=== PATIENT | female | born 1980 | race Caucasian/White ===

== ENCOUNTER 2020-05-30 06:08 | Inpatient (IN) | payer OTHER ==
[2020-05-30] MEDS ORDERED: METOCLOPRAMIDE 10 MG/2 ML INJ IV NR (06:34)
[2020-05-30] MEDS ORDERED: BICITRA ORAL LIQD 30ML PO NR (06:34)
[2020-05-30] MEDS ORDERED: FAMOTIDINE 20 MG/2 ML INJ IV NR (06:34)
[2020-05-30 06:58] LABS: Basophils # (Auto) 0.1 K/mm3 (0.0-0.1); Eosinophils # (Auto) 0.2 K/mm3 (0.0-0.4); Eosinophils % (Auto) 3.3 % (0.0-4.3); Hematocrit 28.7 % (30.3-42.9); Hemoglobin 9.4 gm/dl (10.1-14.3); Lymphocytes # (Auto) 1.3 K/mm3 (1.2-5.4); Lymphocytes % (Auto) 23.4 % (13.4-35.0); Mean Corpuscular HGB Conc 33 % (30-34); Mean Corpuscular Volume 80 fl (79-97); Monocytes # (Auto) 0.4 K/mm3 (0.0-0.8); Monocytes % (Auto) 6.9 % (0.0-7.3); Platelet Count 170 K/mm3 (140-440); Red Cell Distribution Width 15.3 % (13.2-15.2)
[2020-05-30] MEDS ORDERED: ceFAZolin/Water 2 GM/20 ML 2 GM/20 ML SYRINGE IV NR (07:00)
[2020-05-30] MEDS ORDERED: OXYTOCIN DRIP 30 UNITS/500 ML BAG IV SCH ×2 (07:00→10:00)
[2020-05-30] MEDS ORDERED: LACTATED RINGERS 1,000 ML IV SCH ×2 (07:00→10:00)
--- NOTE | 2020-05-30 07:26 | Anesthesia Consultation ---
Anesthesia Consult and Med Hx Date of service: 05/30/20 - Airway Anesthetic Teeth Evaluation: Good ROM Head & Neck: Adequate Mental/Hyoid Distance: Adequate Mallampati Class: Class II Intubation Access Assessment: Probably Good - Pulmonary Exam CTA: Yes - Cardiac Exam Cardiac Exam: RRR - Pre-Operative Health Status ASA Pre-Surgery Classification: ASA2 Proposed Anesthetic Plan: Spinal - Other Systems Hx Obesity: Yes
--- NOTE | 2020-05-30 07:26 | Anesthesia Day of Surgery ---
Anesthesia Day of Surgery - Day of Surgery Patient Examined: Yes Patient H&P Reviewed: Yes Patient is NPO: Yes
[2020-05-30] MEDS ORDERED: SODIUM CHLORIDE 0.9% 500 ML 500 ML IV NR (07:40)
--- NOTE | 2020-05-30 07:42 | History and Physical Report ---
History of Present Illness Date of examination: 05/30/20 Date of admission: 05/30/20 06:08 Chief complaint: 40yo GP at weeks presents for primary section and bilateral tubal ligation Breech presentation Multiparity desires surgical sterilization History of present illness: 40yo at weeks, breech presentation Multiparity, desires surgical sterilization PNC at [facility] Prental labs O/pos H/H: 02/18/30.7 HIV NR Rubella immune GCT 140,GTT WNL RPR NR HbAG NR Pap NILM GC/Chlamydia: negative AFP positive for DOWNS GBS negative PNR in paper chart, unable to read Past History Past Surgical History: no surgical history Family/Genetic History: none Social history: no significant social history - Obstetrical History Expected Date of Delivery: 05/31/20 Actual Gestation: 39 Week(s) 6 Day(s) : 5 Para: 4 Medications and Allergies Allergies Allergy/AdvReac Type Severity Reaction Status Date / Time No Known Allergies Allergy Unverified 05/30/20 06:34 Home Medications Medication Instructions Recorded Confirmed Last Taken Type No Known Home Medications [No 05/30/20 05/30/20 Unknown History Reported Home Medications] Active Meds: Active Medications Citric Acid/Sodium Citrate (Bicitra) 30 ml PO ONCE NR Stop: 05/30/20 13:00 Famotidine (Pepcid) 20 mg IV ONCE NR Stop: 05/30/20 13:00 Lactated Ringer's (Lactated Ringers) 1,000 mls @ 2,250 mls/hr IV PREOP SAGAR Stop: 05/31/20 07:27 Last Admin: 05/30/20 06:45 Dose: 2,250 mls/hr Documented by: Oxytocin/Sodium Chloride (Pitocin/Ns 30 Unit/500ml) 30 units in 500 mls @ 0 mls/hr IV TITR SAGAR; Protocol Cefazolin Sodium (Ancef/Sterile Water 2 Gm/20 Ml) 2 gm in 20 mls @ 80 mls/hr IV PREOP NR; Protocol Stop: 05/30/20 23:00 Metoclopramide HCl (Reglan) 10 mg IV ONCE NR Stop: 05/30/20 13:00 Review of Systems All systems: negative (ROS negtive for OB compliants) - Vital Signs Vital signs: Vital Signs Pulse BP 75 136/84 05/30/20 06:56 05/30/20 06:56 Temp Pulse Resp BP Pulse Ox 98.3 F 79 18 136/84 99 05/30/20 07:03 05/30/20 07:37 05/30/20 07:03 05/30/20 07:03 05/30/20 07:37 - Physical Exam Breasts: Positive: deferred Cardiovascular: Regular rate Lungs: Positive: Clear to auscultation Abdomen: Positive: normal appearance, soft, normal bowel sounds Genitourinary (Female): Positive: normal external genitalia, normal perenium Anus/Rectum: Positive: normal perianal skin Extremities: Positive: normal Deep Tendon Reflex Grade: Normal +2 - Obstetrical FHR: category 1 Results Result Diagrams: 05/30/20 06:45 Abnormal lab results 05/30/20 Range/Units 06:45 RBC 3.60 L (3.65-5.03) M/mm3 Hgb 9.4 L (10.1-14.3) gm/dl Hct 28.7 L (30.3-42.9) % MCH 26 L (28-32) pg RDW 15.3 H (13.2-15.2) % All other labs normal. 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 Patient taken to the OR where she received excellent spinal anesthesia without complications. EUA revealed vertex presentation, US at bedside confirms position. Plan for admission to L&D, AROM and oxytocin. cervix 3-4cm. Plan for BTL as outpatient. GBS prophylasis as indicated Patient acknowledges understanding. Olivia Meeks MD
[2020-05-30] MEDS ORDERED: BUPIVACAINE/PF (0.5%) 5 MG/1 ML 30 ML VIAL INFILTRATI ONE (07:57)
[2020-05-30] MEDS ORDERED: dexAMETHasone 20 MG/5 ML VIAL ONE (07:57)
[2020-05-30] MEDS ORDERED: ONDANSETRON 4 MG/2 ML INJ ONE (07:57)
[2020-05-30] MEDS ORDERED: KETOROLAC 30 MG/1 ML INJ ONE (07:57)
[2020-05-30] MEDS ORDERED: BUTORPHANOL 2 MG/1 ML INJ IV PRN (09:01)
[2020-05-30] MEDS ORDERED: LIDOCAINE (2%) 20 MG/1 ML VIAL 20 ML MDV INFILTRATI NR (09:01)
[2020-05-30] MEDS ORDERED: TERBUTALINE 1 MG/1 ML INJ SUB-Q PRN (09:01)
--- NOTE | 2020-05-30 09:18 | Progress Note ---
Subjective - Subjective Date of service: 05/30/20 Interval history: Vertex AROM clear fluid cervix 3-4cm/25%/-3 well begin reassuring paln for oxytocin per protocol CFM expect Olivia Meeks MD Objective - Vital Signs Vital Signs: Vital Signs - 12hr 05/30/20 05/30/20 05/30/20 06:56 06:57 07:02 Temperature Pulse Rate 75 76 76 Respiratory Rate Blood Pressure 136/84 Blood Pressure [Right] O2 Sat by Pulse 99 99 Oximetry 05/30/20 05/30/20 05/30/20 07:03 07:07 07:12 Temperature 98.3 F Pulse Rate 75 78 82 Respiratory 18 Rate Blood Pressure Blood Pressure 136/84 [Right] O2 Sat by Pulse 99 99 99 Oximetry 05/30/20 05/30/20 05/30/20 07:17 07:22 07:27 Temperature Pulse Rate 82 81 87 Respiratory Rate Blood Pressure Blood Pressure [Right] O2 Sat by Pulse 99 99 98 Oximetry 05/30/20 05/30/20 05/30/20 07:32 07:37 07:42 Temperature Pulse Rate 78 79 84 Respiratory Rate Blood Pressure Blood Pressure [Right] O2 Sat by Pulse 98 99 98 Oximetry 05/30/20 05/30/20 05/30/20 07:47 08:41 08:42 Temperature Pulse Rate 97 H 71 72 Respiratory Rate Blood Pressure 97/53 Blood Pressure [Right] O2 Sat by Pulse 99 98 Oximetry 05/30/20 05/30/20 05/30/20 08:46 08:51 08:56 Temperature Pulse Rate 75 73 74 Respiratory Rate Blood Pressure Blood Pressure [Right] O2 Sat by Pulse 95 99 99 Oximetry 05/30/20 05/30/20 05/30/20 08:57 09:01 09:06 Temperature Pulse Rate 70 73 73 Respiratory Rate Blood Pressure 94/50 Blood Pressure [Right] O2 Sat by Pulse 96 98 Oximetry 05/30/20 05/30/20 09:11 09:12 Temperature Pulse Rate 73 70 Respiratory Rate Blood Pressure 90/54 Blood Pressure [Right] O2 Sat by Pulse 99 Oximetry - Labs Labs: Abnormal Labs 05/30/20 05/30/20 06:45 06:45 RBC 3.60 L Hgb 9.4 L Hct 28.7 L MCH 26 L RDW 15.3 H Crossmatch See Detail Laboratory Results - last 24 hr 05/30/20 05/30/20 06:45 06:45 WBC 5.7 RBC 3.60 L Hgb 9.4 L Hct 28.7 L MCV 80 MCH 26 L MCHC 33 RDW 15.3 H Plt Count 170 Lymph % (Auto) 23.4 [place] % (Auto) 6.9 Eos % (Auto) 3.3 Baso % (Auto) 1.0 Lymph # (Auto) 1.3 [place] # (Auto) 0.4 Eos # (Auto) 0.2 Baso # (Auto) 0.1 Seg Neutrophils % 65.4 Seg Neutrophils # 3.7 Blood Type O POSITIVE Antibody Screen Negative Crossmatch See Detail
[2020-05-30] MEDS ORDERED: ePHEDrine SULFATE 50 MG/1 ML INJ IV PRN (09:30)
[2020-05-30] MEDS ORDERED: fentaNYL 100 MCG/2 ML INJ IV PRN (09:30)
[2020-05-30] MEDS ORDERED: ONDANSETRON 4 MG/2 ML INJ IV PRN (10:00)
[2020-05-30] MEDS: OXYTOCIN DRIP 30 UNITS/500 ML BAG IV SCH ×2 (11:10→11:46)
--- NOTE | 2020-05-30 18:04 | Event Note ---
Date: 05/30/20 Assumed care of patient at 5:30 PM. Patient is receiving oxytocin for augmentation of labor at term. Nurse states patient had AROM at 08:50 this mo rning with clear fluid. SVE 4.5/30/-4/cephalic. On exam under bright lights, small perineal lesion noted on right side of perineum; resembles abrasion or fissure. Questioned patient re: this lesion. Patient states she was not aware of any lesion. She denies any pain, itching, stinging or burning. Patient denies any history of herpes. Discussed with patient that we will perform a herpes culture on the lesion and also do herpes serology today but that we will not have the results of these tests for several days. Cultured lesion and sent swab to lab. Called and informed Dr. Squires re: lesion noted on perineum during exam and that cultures and serology were ordered/performed. Informed re: cervical exam and that membranes were ruptured at 08:[address] Squires states she will come and evaluate this lesion. Patient informed that MD notified.
[2020-05-30] MEDS ORDERED: valACYclovir 500 MG TAB PO SCH (19:13)
--- NOTE | 2020-05-30 21:19 | Event Note ---
Date: 05/30/20 Dr. Squires came and saw patient and evaluated lesion and states it is OK to proceed with labor and allow patient to have a vaginal .
[2020-05-30] MEDS ORDERED: MINERAL OIL 30 ML ORAL LIQD PO PRN (22:00)
--- NOTE | 2020-05-31 02:02 | Event Note ---
Date: 05/31/20 SVE /-3.
--- NOTE | 2020-05-31 06:51 | Event Note ---
Date: 05/31/20 SVE at 06:45: 6/90/-3. Only change in cervix is slightly more effacement since last exam [address]. [address] Squires at 06:48 re: minimal cervical change in spite of Pitocin and prolonged ROM and high station. Dr. Squires orders to get patient ready to have a section. Discussed this plan with patient. Informed patient's nurse and OR team. orders put in. Pitocin turned off.
[2020-05-31] MEDS ORDERED: LACTATED RINGERS 1,000 ML IV SCH (07:00)
[2020-05-31] MEDS ORDERED: BICITRA ORAL LIQD 30ML PO NR (07:00)
[2020-05-31] MEDS ORDERED: METOCLOPRAMIDE 10 MG/2 ML INJ IV NR (07:00)
[2020-05-31] MEDS ORDERED: FAMOTIDINE 20 MG/2 ML INJ IV NR (07:00)
[2020-05-31] MEDS ORDERED: ceFAZolin/Water 2 GM/20 ML 2 GM/20 ML SYRINGE IV NR (07:00)
[2020-05-31] MEDS ORDERED: miSOPROStol 200 MCG TAB ONE (07:58)
[2020-05-31] MEDS ORDERED: METHYLERGONOVINE MALEATE 0.2 MG/ML VIAL IM ONE (07:58)
[2020-05-31] MEDS ORDERED: CARBOPROST TROMETHAMINE 250 MCG/1 ML INJ IM ONE (07:58)
[2020-05-31] MEDS ORDERED: ceFAZolin/STERILE WATER 2 GM/20 ML SYRINGE IV ONE (08:05)
[2020-05-31] MEDS ORDERED: SODIUM CHLORIDE 0.9% IRR 1,500 ML BOTTLE IR ONE (08:18)
[2020-05-31] MEDS ORDERED: WATER FOR IRRIG STERILE 1,500 ML BOTTLE IR ONE (08:18)
[2020-05-31] MEDS ORDERED: BUPIVACAINE/PF (0.5%) 5 MG/1 ML 30 ML VIAL INFILTRATI ONE (08:58)
[2020-05-31] MEDS ORDERED: ONDANSETRON 4 MG/2 ML INJ ONE (08:58)
[2020-05-31] MEDS ORDERED: PHENYLEPHRINE/NS 1,000 MCG/10 ML SYRINGE (OR USE) IV ONE (08:58)
[2020-05-31] MEDS ORDERED: SODIUM CHLORIDE 0.9% 100 ML ONE (09:22)
[2020-05-31] MEDS ORDERED: KETOROLAC 30 MG/1 ML INJ ONE (09:22)
--- NOTE | 2020-05-31 09:46 | Procedure Note ---
OB Delivery Note - Delivery Date of Delivery: 05/31/20 Surgeon: CHARITY SAWANT Estimated blood loss: 1000cc - Section Preop diagnosis: arrest of dilation, desires sterilization Postop diagnosis: same section procedure: section, primary low transverse, bilateral tubal ligation Disposition: PACU Complications: uterine atony Narrative: Please see operative report. - A at 1 minute: 9 at 5 minutes: 9 Infant Gender: Female (3901g (8lb 9oz) @ 0840 am)
--- NOTE | 2020-05-31 09:49 | Operative Report ---
Operative Report Operative Report: Date of procedure: May 31, 2020 Preoperative diagnosis: 1) IUP at 40w0d 2) Prolonged ROM 3) Arrest of Dilation 4) Obesity 5) Undesired Fertility 6) AMA Postoperative diagnosis: Same Procedure: 1) Primary low transverse section 2) Bilateral tubal ligation via modified [place] method Surgeon: Farrah Squires M.D. Anesthesia: Regional Findings: 1) Viable female , Apgars 9 and 9, weight 3901g, (8 lb 9 oz) in cephalic presentation 2) Normal appearing ovaries and tubes Estimated blood loss: 1000 mL Urine output: 100 mL, clear at the end of the procedure Drains: Marino to gravity Specimens: Tubal segments, placenta to pathology Complications: Counts correct x 3 Disposition: Stable to PACU Indication for procedure: Pt is a 40 year old at 40w0d initially presented on 05/30/20 for scheduled section due to malpresentation. The fetus was noted to be in cephalic presentation and an induction of labor was started. The patient progressed to 6 cm but arrested there for 4 hours. The decision was made to proceed with section. Operation in Detail: After the risks, benefits, alternatives and complications were explained to the patient she gave informed consent for the procedure. She was subsequently taken to the operating room where regional anesthesia was noted to be adequate. She was then placed in the dorsal supine position with leftward tilt and prepped and draped in a normal sterile fashion. heart tones were noted prior to incision. A timeout was performed. A Pfannenstiel skin incision was made with the knife and carried down to the layer of the fascia with the Bovie. The fascia was incised in the midline and the fascial incision was extended bilaterally with the Bovie. The fascial incision was then stretched. The rectus muscles were then in the midline and partially transected for adequate visualization. The peritoneum was then entered sharply between two Gisel clamps. The peritoneal incision was extended with good visualization of the bladder. The peritoneal incision was then stretched. An Karl retractor was placed. The bladder blade was placed. The vesicouterine peritoneum was grasped with smooth pick ups and incised with Metzenbaum scissos. A bladder flap was created and the bladder blade was re placed. A transverse incision was made with a knife in the lower uterine segment. The hysterotomy was stretched. The head was delivered without difficulty followed by delivery of the shoulders and body. was bulb suctioned at delivery. The cord was clamped and cut and the was handed to NICU staff in attendance. Cord blood was collected. The placenta was then delivered manually. The uterus was exteriorized and cleared of all clots and debris. The hysterotomy was then reapproximated with 0 Vicryl in a running locked fashion. A second suture was used in an imbricated fashion. Multiple figure of eights of 0 Vicryl were used to obtain hemostasis. The hysterotomy was inspected and hemostasis was noted. Attention was then turned to the tubal ligation. The right tube was identified, grasped with a hope and followed out to the fimbriae. The tube was suture ligated via a modified [place] merhod using 0 plain suture. The intervening tubal segment was sent to pathology. Oozing from the mesosalpinx was controlled with a transfixion stitch of 3-0 Vicryl. Hemostasis was noted. The left tube was then identified, followed out to the fimbriae and suture ligated via a modified [place] method using 0 plain suture. Hemostasis was noted. Surgicel was placed over the tubal ostia bilaterally. The gutters were irrigated and cleared of all clots and debris. The hysterotomy was again inspected and noted to be hemostatic. Surgicel was placed over the hysterotomy. The uterus was returned to the peritoneal cavity. The Karl retractor was removed. The peritoneum was reapproximated with 2-0 Vicryl in a running fashion incorporating the rectus muscles. Surgicel was placed over the rectus muscles. The fascia was reapproximated with 0-Vicryl in a running fashion. The skin was reapproximated with 4-0 Vicryl in a subcuticular fashion. The incision was then covered with a pressure dressing. The procedure was then ended. The patient tolerated the procedure well and was taken to the PACU in stable condition. All instrument, lap, and needle counts were correct 3.
--- NOTE | 2020-05-31 10:00 | Post Anesthesia Evaluation ---
- Post Anesthesia Evaluation Patient Participated: Yes Airway Patent: Yes Stable Respiratory Function: Yes Nausea/Vomiting: No Temp > 96.8F: Yes Pain Manageable: Yes Adequeate Hydration: Yes Anesthesia Complications: No Block Receding Appropriately: Yes
--- NOTE | 2020-05-31 10:00 | Progress Note ---
Regional Anesthesia Block - Regional Anesthesia Block Start Time: :50 Stop Time: :55 Performed By:: CAITLIN DUNN Procedure: U/S guided bilateral tap block performed for post-operative pain requested by Dr. Squires. H&P & labs reviewed. Procedure explained, questions answered, consent obtained. Patient in the supine position with ekg, blood pressure cuff and pulse ox on and working in PACU. Timeout performed immediately before start of procedure. Probe placed in the mid-axillary line and the external oblique, internal oblique, and transverse abdominus muscles identified. Skin was cleansed with 0.5% Chlorahexadine and allowed to dry. A 4" 20 G Trotter echogenic needle was advanced in plane until the tip was in the fascial plane between the internal oblique and the transverse abdominus. After negative aspiration 35 ml/side of [30 ml 0.5% Bupivacaine], [50 mcg dexmedetomidine], [10 mg dexamethasone], and [40 ml sterile saline] was injected in 5 ml increments with negative aspiration in between. Patient tolerated procedure well. Cholo CLARK
[2020-05-31] MEDS ORDERED: MORPHINE 4 MG/1 ML INJ IV PRN (11:46)
[2020-05-31] MEDS ORDERED: OXYTOCIN DRIP 30 UNITS/500 ML BAG IV SCH (11:46)
[2020-05-31] MEDS ORDERED: MORPHINE 2 MG/1 ML INJ IV PRN (11:46)
[2020-05-31] MEDS ORDERED: SIMETHICONE 80 MG CHEW TAB PO PRN (11:46)
[2020-05-31] MEDS ORDERED: WITCH HAZEL/ GLYCERIN PAD TP PRN (11:46)
[2020-05-31] MEDS ORDERED: LANOLIN/ZINC/DIMETHICONE (LANSINOH) 7 GM TP PRN (11:46)
[2020-05-31] MEDS ORDERED: MAGNESIUM HYDROXIDE (MOM) ORAL LIQD UDC PO PRN (11:46)
[2020-05-31] MEDS ORDERED: oxyCODONE /ACETAMINOPHEN 5-325MG TAB PO PRN (11:46)
[2020-05-31] MEDS ORDERED: NALOXONE 0.4 MG/1 ML INJ IV PRN (11:46)
[2020-05-31] MEDS: KETOROLAC 30 MG/1 ML INJ IV SCH ×2 (12:14→18:17)
[2020-05-31] MEDS: D5W/LACTATED RINGERS 1,000 ML IV SCH ×2 (12:15→18:48)
[2020-05-31] MEDS: ceFAZolin/NS 1 GM/50 ML 1 GM/50 ML BAG IV SCH (16:14)
[2020-06-01] MEDS: KETOROLAC 30 MG/1 ML INJ IV SCH (00:52)
[2020-06-01] MEDS: ceFAZolin/NS 1 GM/50 ML 1 GM/50 ML BAG IV SCH (00:53)
[2020-06-01 01:12] LABS: Hemoglobin 7.4 gm/dl (10.1-14.3)
[2020-06-01] MEDS ORDERED: DIPHtheria,PERTUSSIS(ACELL),TETANUS VACCINE/PF 0.5 ML VIAL IM ONE (06:01)
[2020-06-01] MEDS ORDERED: MEASLES, MUMPS & RUBELLA 12,500 UNIT/0.5 ML VACCINE SUB-Q ONE (10:01)
[2020-06-01] MEDS: IBUPROFEN 800 MG TAB PO PRN ×3 (11:27→23:46)
[2020-06-01] MEDS: FERROUS SULFATE 325 MG TAB PO SCH (11:28)
--- NOTE | 2020-06-01 20:04 | Progress Note ---
Assessment and Plan A: /postop day 1 S/P primary LTCS with BTL. Anemia. P: Encouraged ambulation. Continue iron supplementation. Subjective - Subjective Date of service: 06/01/20 Principal diagnosis: /postop day 1 S/P primary LTCS and BTL Patient reports: appetite normal, voiding normally, pain well controlled, flatus, ambulating normally, no dizzy ambulation, no nauseated [place]: doing well Objective - Vital Signs Latest vital signs: Vital Signs Temp Pulse Resp BP Pulse Ox 06/01/20 16:14 97.9 F 103 H 18 118/75 100 06/01/20 08:17 98.4 F 112 H 20 134/76 97 06/01/20 05:44 98.2 F 107 H 18 130/76 98 06/01/20 00:49 98.3 F 117 H 18 124/80 99 05/31/20 21:48 98.5 F 90 18 125/72 98 Intake and Output 06/01/20 06/01/20 06/01/20 07:59 15:59 23:59 Intake Total 240 960 840 Output Total 400 450 400 Balance -160 510 440 Intake: Oral 240 360 480 Intake, Free Water 600 360 Output: Urine 400 450 400 Indwelling Catheter 400 Void 450 400 Other: Total, Intake Amount 120 240 480 Total, Output Amount 400 450 400 # Voids Indwelling Catheter 1 Void 1 2 - Exam Cardiovascular: Present: Regular rate, No murmurs Lungs: Present: Clear to auscultation Abdomen: Present: normal appearance, soft, normal bowel sounds. Absent: distention, tenderness, guarding, rigidity Uterus: Present: normal, firm, fundal height below umbilicus. Absent: bogginess, tenderness Extremities: Present: normal. Absent: tenderness, edema Incision: Present: normal, dry, dressed - Labs Labs: Abnormal lab results 05/30/20 06/01/20 Range/Units 06:45 00:40 Hgb 7.4 L (10.1-14.3) gm/dl Hct 23.0 L (30.3-42.9) % Crossmatch See Detail
[2020-06-02] MEDS: IBUPROFEN 800 MG TAB PO PRN (05:50)
[2020-06-02] MEDS: FERROUS SULFATE 325 MG TAB PO SCH (10:01)
--- NOTE | 2020-06-02 12:01 | Progress Note ---
Assessment and Plan A: POD #2 Asymptomatic Anemia P: Follow Routine PostOp Orders Continue PO FeSO4 Infed 100mg IM x 1 dose D/C home today per patient request RTO in one Week Subjective - Subjective Date of service: 06/02/20 Principal diagnosis: /postop day 1 S/P primary LTCS and BTL Patient reports: appetite normal, voiding normally, pain well controlled, flatus, ambulating normally : doing well, bottle feeding (and ) Objective - Vital Signs Latest vital signs: Vital Signs Temp Pulse Resp BP Pulse Ox 06/02/20 08:12 97.7 F 84 18 121/67 99 06/01/20 23:44 98.3 F 104 H 18 119/65 100 06/01/20 16:14 97.9 F 103 H 18 118/75 100 Intake and Output 06/01/20 06/02/20 06/02/20 22:59 06:59 14:59 Intake Total 960 240 Output Total 800 Balance 160 240 Intake: Oral 600 240 Intake, Free Water 360 Output: Urine 800 Void 800 Other: Total, Intake Amount 120 240 Total, Output Amount 400 # Voids Void 1 1 1 - Exam Breasts: Present: normal Cardiovascular: Present: Regular rate Lungs: Present: Clear to auscultation, Normal air movement Abdomen: Present: normal appearance, soft, normal bowel sounds Uterus: Present: normal, firm, fundal height below umbilicus Extremities: Present: normal Incision: Present: normal, intact - Labs Labs: Abnormal lab results 05/30/20 Range/Units 06:45 Crossmatch See Detail
--- NOTE | 2020-06-02 12:03 | Discharge Summary ---
Providers - Providers Date of Admission: 05/30/20 06:08 Date of discharge: 06/02/20 Attending physician: MADISON CASE MD 05/31/20 11:46 Consult to Vp Patient [CONS] Routine Reason For Exam: Primary care physician: MADISON CASE MD Hospitalization Reason for admission: section Delivery: Procedure: primary low transverse Episiotomy: none Laceration: none Incision: normal, dry, intact Other procedures: none complications: none Discharge diagnosis: IUP at term delivered Condition at discharge: Good Disposition: DC-01 TO HOME OR SELFCARE Plan - Provider Discharge Summary Activity: routine, no sex for 6 weeks, no heavy lifting 4 weeks, no strenuous exercise Diet: routine Instructions: routine Additional instructions: [] Smoking cessation referral if applicable(refer to patient education folder for contact #) [] Refer to [facility] Booklet Call your doctor immediately for: * Fever > 100.5 * Heavy vaginal bleeding ( >1 pad per hour) * Severe persistent headache * Shortness of breath * Reddened, hot, painful area to leg or breast * Drainage or odor from incision. * Keep incision clean and dry at all times and follow doctor's instructions regarding bathing/showering - Follow up plan Follow up: MADISON CASE MD [Primary Care Provider] - 7 Days
[2020-06-02] MEDS ORDERED: IRON DEXTRAN COMPLEX 100 MG/2 ML INJ IM ONE (12:26)
[2020-06-02] MEDS ORDERED: DIPHtheria,PERTUSSIS(ACELL),TETANUS VACCINE/PF 0.5 ML VIAL IM ONE ×2 (14:36→15:30)
[2020-06-02 14:51] VITALS: BP 130/53
== END 2020-06-02 15:10 | disposition home or self-care (01) | DRG 785 ==
LOC: APU 06:08 → LD 11:05 → OB 05-31 12:06
PROVIDERS: ADMIT Obstetrics & Gynecology; ATTEND Obstetrics & Gynecology
PROC: 10907ZC Drainage of Amniotic Fluid, Therapeutic from Products of Conception, Via Natural or Artificial Opening (ICD-10-PCS; 2020-05-30)
PROC: 3E033VJ Introduction of Other Hormone into Peripheral Vein, Percutaneous Approach (ICD-10-PCS; 2020-05-30)
PROC: 10D00Z1 Extraction of Products of Conception, Low, Open Approach (ICD-10-PCS; principal; 2020-05-31)
PROC: 0UB70ZZ Excision of Bilateral Fallopian Tubes, Open Approach (ICD-10-PCS; 2020-05-31)
PROC: 3E0234Z Introduction of Serum, Toxoid and Vaccine into Muscle, Percutaneous Approach (ICD-10-PCS; 2020-06-02)
DX: O32.1XX0 Maternal care for breech presentation, not applicable or unspecified (principal); O99.214 Obesity complicating childbirth; Z37.0 Single live birth; E66.9 Obesity, unspecified; O62.2 Other uterine inertia; Z3A.40 40 weeks gestation of pregnancy; O09.523 Supervision of elderly multigravida, third trimester; O90.81 Anemia of the puerperium; D64.9 Anemia, unspecified; Z20.828 Contact with and (suspected) exposure to other viral communicable diseases; Z23 Encounter for immunization
CPT/HCPCS: 36415; 85014; 85018; 85025; 86592; 86850; 86900; 86901; 86920; 87255; 87529; 88302; 88307; 90715; G0378; J0595; J0690; J1100; J1750; J1885; J2270; J2370; J2405; J2590; J2765; J3490; J7120; J7121; U0003

== ENCOUNTER 2020-06-21 14:34 | Inpatient (IN) | payer SELFPAY ==
[2020-06-21 15:01] LABS: Basophils % (Auto) 0.3 % (0.0-1.8); Eosinophils % (Auto) 0.7 % (0.0-4.3); Hematocrit 28.5 % (30.3-42.9); Lymphocytes # (Auto) 0.6 K/mm3 (1.2-5.4); Lymphocytes % (Auto) 9.2 % (13.4-35.0); Mean Corpuscular HGB Conc 32 % (30-34); Mean Corpuscular Volume 80 fl (79-97); Monocytes # (Auto) 0.3 K/mm3 (0.0-0.8); Monocytes % (Auto) 3.7 % (0.0-7.3); Platelet Count 355 K/mm3 (140-440); Red Blood Count 3.56 M/mm3 (3.65-5.03)
[2020-06-21 15:08] LABS: INR 0.96 (0.87-1.13)
[2020-06-21 15:09] LABS: Partial Thromboplastin Time 27.7 Sec. (24.2-36.6)
[2020-06-21 15:17] LABS: Blood Urea Nitrogen 15 mg/dL (7-17); Calcium 10.7 mg/dL (8.4-10.2); Hemolysis Index 0
[2020-06-21 15:37] LABS: BUN/Creatinine Ratio 30
[2020-06-21] MEDS ORDERED: FAMOTIDINE 20 MG/2 ML INJ IV ONE (15:52)
[2020-06-21] MEDS ORDERED: MORPHINE 4 MG/1 ML INJ IV ONE ×2 (15:52→18:30)
[2020-06-21] MEDS ORDERED: SODIUM CHLORIDE 0.9% 1000 ML 1,000 ML IV ONE ×2 (15:52→17:43)
[2020-06-21] MEDS ORDERED: ONDANSETRON 4 MG/2 ML INJ IV ONE (15:52)
--- NOTE | 2020-06-21 15:53 | Emergency Department Report ---
<CRISTIAN TALBERT C - Last Filed: 06/21/20 19:38> ED Abdominal Pain HPI - General Chief Complaint: Weakness Stated Complaint: ABD PAIN/POST Time Seen by Provider: 06/21/20 15:33 Source: patient, family Mode of arrival: Ambulatory Limitations: Language Barrier - History of Present Illness Initial Comments: 40-year-old female status post delivery May 31 presents to the hospital with abdominal pain nausea, and vomiting. Patient states that she went to [facility] on June 17 for bleeding from scar wound. She states she underwent a CAT scan and was diagnosed with a hematoma. Bleeding has since improved. She now presents with nausea with 1 episode of vomiting today. Patient also has right upper quadrant pain radiating to the back with epigastric pain. No fever reported. Mild dysuria is reported. Patient denies lower abdominal pain. 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 - Related Data Home Medications Medication Instructions Recorded Confirmed Last Taken No Known Home Medications [No 05/30/20 05/30/20 Unknown Reported Home Medications] Allergies Allergy/AdvReac Type Severity Reaction Status Date / Time No Known Allergies Allergy Unverified 05/30/20 06:34 ED Review of Systems Comment: All other systems reviewed and negative ED Past Medical Hx - Past Medical History Previous Medical History?: Yes Hx Hypertension: No Hx Congestive Heart Failure: No Hx Diabetes: No Hx Deep Vein Thrombosis: No Hx Renal Disease: No Hx Sickle Cell Disease: No Hx Seizures: No Hx Asthma: No Hx COPD: No Hx HIV: No Additional medical history: Abd hematoma after , Vaginal delivery x 4 - Surgical History Past Surgical History?: Yes Additional Surgical History: x 1 - Social History Smoking Status: Never Smoker Substance Use Type: None - Medications Home Medications: Home Medications Medication Instructions Recorded Confirmed Last Taken Type No Known Home Medications [No 05/30/20 05/30/20 Unknown History Reported Home Medications] ED Physical Exam - General Limitations: Language Barrier - Other Other exam information: General: No acute distress Head: Atraumatic Eyes: normal appearance ENT: Moist mucous membranes Neck: Normal appearance, no midline tenderness Chest: Clear to auscultation bilaterally CV: Regular rate and rhythm Abdomen: Soft, normal bowel sounds, lower abdominal wound with Steri- Strips in place with no active bleeding. Old blood noted at abdominal pad. Nontender lower abdomen. Positive tenderness to right upper quadrant and epigastric area without rebound or guarding. Back: Normal inspection Extremity: Normal inspection, full range of motion Neuro: Alert O x 3, no facial asymmetry, speech clear, no gross motor sensory deficit Psych: Appropriate behavior Skin: No rash ED Course - Reevaluation(s) Reevaluation #1: 06/21/20 19:07 Initially improved after initial dose of morphine Zofran that started to recur. Patient declined additional morphine stated she did not want anything stronger therefore IV Toradol provided. At this time patient is awaiting ultrasound of her gallbladder and case has been discussed with general surgery and IMPROVEMENT LEADER. - Consultations Consultation #1: 06/21/20 17:[address] SEGURA on-call general surgeon. Recommends ultrasound of the gallbladder and if shows similar findings pt will require admission, if not and sx improved suggests possible d/c 06/21/20 18:[address] Farrah Squirse regarding post hematoma. She states that he did perform however, this patient is a primary patient for [facility] and she was covering Dr. Meeks at the time 06/21/20 18:56 Case d/w Dr Cunningham with [facility], nothing acute to be done for rectus sheath hematoma at this time and f/u appropriate. ED Medical Decision Making - Lab Data Result diagrams: 06/21/20 14:46 06/21/20 14:46 Lab Results 06/21/20 06/21/20 06/21/20 Range/Units 14:46 14:46 14:46 WBC 7.0 (4.5-11.0) K/mm3 RBC 3.56 L (3.65-5.03) M/mm3 Hgb 9.0 L (10.1-14.3) gm/dl Hct 28.5 L (30.3-42.9) % MCV 80 (79-97) fl MCH 25 L (28-32) pg MCHC 32 (30-34) % RDW 19.0 H (13.2-15.2) % Plt Count 355 (140-440) K/mm3 Lymph % (Auto) 9.2 L (13.4-35.0) % [place] % (Auto) 3.7 (0.0-7.3) % Eos % (Auto) 0.7 (0.0-4.3) % Baso % (Auto) 0.3 (0.0-1.8) % Lymph # (Auto) 0.6 L (1.2-5.4) K/mm3 [place] # (Auto) 0.3 (0.0-0.8) K/mm3 Eos # (Auto) 0.0 (0.0-0.4) K/mm3 Baso # (Auto) 0.0 (0.0-0.1) K/mm3 Seg Neutrophils % 86.1 H (40.0-70.0) % Seg Neutrophils # 6.0 (1.8-7.7) K/mm3 PT 12.7 (12.2-14.9) Sec. INR 0.96 (0.87-1.13) APTT 27.7 (24.2-36.6) Sec. Sodium 136 L (137-145) mmol/L Potassium 4.1 (3.6-5.0) mmol/L Chloride 102.2 (98-107) mmol/L Carbon Dioxide 27 (22-30) mmol/L Anion Gap 11 mmol/L BUN 15 (7-17) mg/dL Creatinine 0.5 L (0.6-1.2) mg/dL Estimated GFR > 60 ml/min BUN/Creatinine Ratio 30 % Glucose 107 H (65-100) mg/dL Calcium 10.7 H (8.4-10.2) mg/dL Total Bilirubin (0.1-1.2) mg/dL Direct Bilirubin (0-0.2) mg/dL Indirect Bilirubin mg/dL AST (5-40) units/L ALT (7-56) units/L Alkaline Phosphatase (35-129) units/L Total Protein (6.3-8.2) g/dL Albumin (3.9-5) g/dL Albumin/Globulin Ratio % Lipase (13-60) units/L Urine Color (Yellow) Urine Turbidity (Clear) Urine pH (5.0-7.0) Ur Specific [place] (1.003-1.030) Urine Protein (Negative) mg/dL Urine Glucose (UA) (Negative) mg/dL Urine Ketones (Negative) mg/dL Urine Blood (Negative) Urine Nitrite (Negative) Urine Bilirubin (Negative) Urine Urobilinogen (<2.0) mg/dL Ur Leukocyte Esterase (Negative) Urine WBC (Auto) (0.0-6.0) /HPF Urine RBC (Auto) (0.0-6.0) /HPF U Epithel Cells (Auto) (0-13.0) /HPF Urine Bacteria (Auto) (Negative) /HPF Blood Type Antibody Screen 06/21/20 06/21/20 06/21/20 Range/Units 14:48 17:59 Unknown WBC (4.5-11.0) K/mm3 RBC (3.65-5.03) M/mm3 Hgb (10.1-14.3) gm/dl Hct (30.3-42.9) % MCV (79-97) fl MCH (28-32) pg MCHC (30-34) % RDW (13.2-15.2) % Plt Count (140-440) K/mm3 Lymph % (Auto) (13.4-35.0) % [place] % (Auto) (0.0-7.3) % Eos % (Auto) (0.0-4.3) % Baso % (Auto) (0.0-1.8) % Lymph # (Auto) (1.2-5.4) K/mm3 [place] # (Auto) (0.0-0.8) K/mm3 Eos # (Auto) (0.0-0.4) K/mm3 Baso # (Auto) (0.0-0.1) K/mm3 Seg Neutrophils % (40.0-70.0) % Seg Neutrophils # (1.8-7.7) K/mm3 PT (12.2-14.9) Sec. INR (0.87-1.13) APTT (24.2-36.6) Sec. Sodium (137-145) mmol/L Potassium (3.6-5.0) mmol/L Chloride (98-107) mmol/L Carbon Dioxide (22-30) mmol/L Anion Gap mmol/L BUN (7-17) mg/dL Creatinine (0.6-1.2) mg/dL Estimated GFR ml/min BUN/Creatinine Ratio % Glucose (65-100) mg/dL Calcium (8.4-10.2) mg/dL Total Bilirubin 0.30 (0.1-1.2) mg/dL Direct Bilirubin < 0.2 (0-0.2) mg/dL Indirect Bilirubin 0.1 mg/dL AST 24 (5-40) units/L ALT 32 (7-56) units/L Alkaline Phosphatase 127 (35-129) units/L Total Protein 7.5 (6.3-8.2) g/dL Albumin 3.9 (3.9-5) g/dL Albumin/Globulin Ratio 1.1 % Lipase 19 (13-60) units/L Urine Color Colorless (Yellow) Urine Turbidity Clear (Clear) Urine pH 8.0 H (5.0-7.0) Ur Specific [place] 1.018 (1.003-1.030) Urine Protein <15 mg/dl (Negative) mg/dL Urine Glucose (UA) Neg (Negative) mg/dL Urine Ketones Neg (Negative) mg/dL Urine Blood Mod (Negative) Urine Nitrite Neg (Negative) Urine Bilirubin Neg (Negative) Urine Urobilinogen < 2.0 (<2.0) mg/dL Ur Leukocyte Esterase Sm (Negative) Urine WBC (Auto) 6.0 (0.0-6.0) /HPF Urine RBC (Auto) 3.0 (0.0-6.0) /HPF U Epithel Cells (Auto) < 1.0 (0-13.0) /HPF Urine Bacteria (Auto) 1+ (Negative) /HPF Blood Type O POSITIVE Antibody Screen Negative - Radiology Data Radiology results: report reviewed CT OF THE ABDOMEN AND PELVIS WITH INTRAVENOUS CONTRAST INDICATION / CLINICAL INFORMATION: with right upper quadrant/epigastric pain and nausea/vomiting. TECHNIQUE: The patient received 100 cc Omnipaque [address] scans at this location are performed using CT dose reduction for ALARA by means of automated exposure control. COMPARISON: None available. FINDINGS: ABDOMEN: There are at least 2 moderate sized noncalcified stones in the gallbladder. The gallbladder is distended with borderline wall thickening. The bile ducts are normal in caliber. The liver, spleen, pancreas, adrenal glands, kidneys and bowel demonstrate no significant abnormality. No adenopathy is seen. There is minimal right basilar dependent atelectasis. PELVIS: There is a mildly enlarged uterus containing a small amount of endometrial fluid. There is a postsurgical hematoma involving the lower anterior abdominal wall at the midline and extending to the right. The hematoma measures approximately 8.4 cm transverse. There is a 4.6 cm left adnexal mass containing fat and calcification. No free fluid is seen. A normal appendix is present and there is no evidence of diverticulitis. No acute osseous abnormality is identified. IMPRESSION: 1. Cholelithiasis. Evidence of acute cholecystitis. 2. 8.4 cm hematoma in the rectus sheath at the site of recent . 3. Incidental 4.6 cm left ovarian dermoid. - Medical Decision Making 40-year-old female with right upper quadrant pain likely secondary to cholelithiasis with possible cholecystitis. Patient does not have leukocytosis, elevated LFTs, or lipase. Case discussed with general surgeon. Ultrasound pending at time of signout to determine if patient has persistent finding of cholecystitis requires admission. Also noted on CT is persistent rectal sheath hematoma which is likely postoperative changes. That was discussed with [employer] IMPROVEMENT LEADER and no acute intervention needed at this time. Patient was treated with normal saline, morphine, Toradol, Zofran, and IV Rocephin. Patient signed out to my partner Dr. Johnson to follow-up ultrasound, reassess patient, and contact general surgery to determine appropriate disposition. Patient is also aware of the plan. Critical Care Time: No ED Disposition Clinical Impression: Biliary colic, Postoperative wound hematoma Cholelithiasis Qualifiers: Cholelithiasis location: gallbladder Cholecystitis presence: with cholecystitis Cholecystitis acuity: acute Biliary obstruction: without biliary obstruction Qualified Code(s): K80.00 - Calculus of gallbladder with acute cholecystitis without obstruction Abdominal pain Qualifiers: Abdominal location: right upper quadrant Qualified Code(s): R10.11 - Right upper quadrant pain Disposition: OP ADMIT IP TO THIS HOSP Condition: Critical <PEE JOHNSON III - Last Filed: 06/21/20 21:40> ED Review of Systems ROS: Stated complaint: ABD PAIN/POST Other details as noted in HPI ED Course Vital Signs 06/21/20 06/21/20 06/21/20 14:40 16:39 17:09 Temperature 98.1 F Pulse Rate 70 Respiratory 18 18 18 Rate Blood Pressure 132/83 Blood Pressure [Right] O2 Sat by Pulse 98 Oximetry 06/21/20 06/21/20 06/21/20 18:43 18:46 19:00 Temperature Pulse Rate Respiratory 18 Rate Blood Pressure Blood Pressure [Right] O2 Sat by Pulse 99 98 100 Oximetry 06/21/20 06/21/20 19:13 19:45 Temperature 98.0 F Pulse Rate 66 Respiratory 18 14 Rate Blood Pressure Blood Pressure 124/66 [Right] O2 Sat by Pulse 100 Oximetry - Reevaluation(s) Reevaluation #2: Patient was signed out to me from previous physician. 06/21/20 20:03 I examined patient. Patient has a positive Davidson sign and patient is tender over the gallbladder. Patient states the pain improved with the pain medication. I will discussed the patient's case with Dr. Segura again. 06/21/20 21:25 Reevaluation #3: I discussed all results with patient. I discussed plan of care with patient. Patient agrees with plan of care and admission. Patient to be admitted to the hospitalist service. 06/21/20 21:38 - Consultations Consultation #2: I discussed case with Dr. Segura. Dr. Courtney states that the patient needs to be admitted to the hospitalist service and she will see the patient in the morning. Dr. Quiñones also wants the patient placed on clear liquids and given Zosyn and pain meds. 06/21/20 21:35 Consultation #3: Hospitalist consulted for admission. Hospitalist to admit patient. 06/21/20 21:38 ED Medical Decision Making - Lab Data Result diagrams: 06/21/20 14:46 06/21/20 14:46 - Radiology Data Radiology results: report reviewed ULTRASOUND ABDOMEN, LIMITED (RIGHT UPPER QUADRANT) INDICATION: RUQ PAIN. COMPARISON: None available. FINDINGS: Pancreas: Visualized portion shows no significant abnormality. Liver: Normal. Gallbladder: Calcified gallstones measuring up to 2.3 cm Bile ducts: Normal. Common Bile Duct measures 2 mm. Free fluid: None. Additional Findings: None. IMPRESSION: 1. Cholelithiasis without sonographic evidence for cholecystitis Critical Care Time: Yes Critical care time in (mins) excluding proc time.: 35 Critical care attestation.: If time is entered above; I have spent that time in minutes in the direct care of this critically ill patient, excluding procedure time. Critical Care Time: 35 minutes ED Disposition Is pt being admited?: Yes Does the pt Need Aspirin: No Time of Disposition: 21:36
[2020-06-21 16:08] LABS: Alanine Aminotransferase 32 units/L (7-56); Albumin 3.9 g/dL (3.9-5)
[2020-06-21 16:20] LABS: Bilirubin,Direct < 0.2 mg/dL (0-0.2)
--- NOTE | 2020-06-21 16:48 | Cat Scan Report ---
CT OF THE ABDOMEN AND PELVIS WITH INTRAVENOUS CONTRAST INDICATION / CLINICAL INFORMATION: with right upper quadrant/epigastric pain and nausea/vomiting. TECHNIQUE: The patient received 100 cc Omnipaque [address] scans at this location are performed using CT dose reduction for ALARA by means of automated exposure control. COMPARISON: None available. FINDINGS: ABDOMEN: There are at least 2 moderate sized noncalcified stones in the gallbladder. The gallbladder is distended with borderline wall thickening. The bile ducts are normal in caliber. The liver, spleen , pancreas, adrenal glands, kidneys and bowel demonstrate no significant abnormality. No adenopathy i s seen. There is minimal right basilar dependent atelectasis. PELVIS: There is a mildly enlarged uterus containing a small amount of endometrial fluid. There is a postsurgical hematoma involving the lower anterior abdominal wall at the midline and exten ding to the right. The hematoma measures approximately 8.4 cm transverse. There is a 4.6 cm left adne xal mass containing fat and calcification. No free fluid is seen. A normal appendix is present and th ere is no evidence of diverticulitis. No acute osseous abnormality is identified. IMPRESSION: 1. Cholelithiasis. Evidence of acute cholecystitis. 2. 8.4 cm hematoma in the rectus sheath at the site of recent . 3. Incidental 4.6 cm left ovarian dermoid. Signer Name: Judd Hernandez MD Signed: 06/21/2020 4:43 PM Workstation Name: [id number]
[2020-06-21] MEDS ORDERED: cefTRIAXone/NS 1 GM/50 ML 1 GM/50 ML BAG IV ONE (17:11)
[2020-06-21 18:19] LABS: Bacteria,Urine 1+ /HPF (Negative); Bilirubin,Urine NEG (Negative); Blood,Urine MOD (Negative); Color,Urine Colorless (Yellow); Protein,Urine <15 mg/dL mg/dL (Negative); Urobilinogen,Urine < 2.0 mg/dL (<2.0)
[2020-06-21] MEDS ORDERED: MORPHINE 4 MG/1 ML INJ ONE (18:29)
[2020-06-21] MEDS ORDERED: KETOROLAC 30 MG/1 ML INJ IV ONE (18:36)
--- NOTE | 2020-06-21 19:56 | Ultrasound Report ---
ULTRASOUND ABDOMEN, LIMITED (RIGHT UPPER QUADRANT) INDICATION: RUQ PAIN. COMPARISON: None available. FINDINGS: Pancreas: Visualized portion shows no significant abnormality. Liver: Normal. Gallbladder: Calcified gallstones measuring up to 2.3 cm Bile ducts: Normal. Common Bile Duct measures 2 mm. Free fluid: None. Additional Findings: None. IMPRESSION: 1. Cholelithiasis without sonographic evidence for cholecystitis Signer Name: Kurt Grove MD Signed: 06/21/2020 7:52 PM Workstation Name: [id number]
[2020-06-21] MEDS ORDERED: PIPERACILLIN/TAZOBACTAM 3.375 3.375 GM/50 ML BAG IV ONE ×2 (21:32→22:08)
[2020-06-21] MEDS ORDERED: ONDANSETRON 4 MG/2 ML INJ IV PRN (22:06)
[2020-06-21] MEDS ORDERED: ACETAMINOPHEN 325 MG TAB PO PRN (22:08)
[2020-06-22] MEDS: PIPERACIL/TAZOBACTA 4.5/NS 100 4.5 GM/100 ML VIAL IV SCH ×3 (05:49→21:38)
[2020-06-22] MEDS ORDERED: PIPERACILLIN/TAZOBACTAM 3.375 3.375 GM/50 ML BAG IV SCH (06:00)
--- NOTE | 2020-06-22 07:51 | History and Physical Report ---
History of Present Illness Date of examination: 06/21/20 Date of admission: 06/21/20 21:39 Chief complaint: Abdominal Pain History of present illness: History of presenting illness, patient is a 40-year-old female who presented to the emergency room with complaint of right upper quadrant abdominal pain radiating to the back and associated with nausea and vomiting, there was no history of fever or chills and no history of diarrhea or constipation. Patient had section done at another hospital mid May and also went back to the same hospital on June 17 because of bleeding at the surgical site, she had CT scan of the abdomen done that showed hematoma at the site of the surgery. Past History Past Medical History: No medical history Past Surgical History: Social history: no significant social history Family history: no significant family history Medications and Allergies Allergies Allergy/AdvReac Type Severity Reaction Status Date / Time No Known Allergies Allergy Unverified 05/30/20 06:34 Home Medications Medication Instructions Recorded Confirmed Last Taken Type No Known Home Medications [No 05/30/20 05/30/20 Unknown History Reported Home Medications] Active Meds: Active Medications Acetaminophen (Tylenol) 650 mg PO Q4H PRN PRN Reason: Fever >101 Hydromorphone HCl (Dilaudid) 1 mg IV Q4H PRN PRN Reason: Pain , Severe (7-10) Dextrose/Sodium Chloride (D5/0.45ns) 1,000 mls @ 125 mls/hr IV DIRECT SAGAR Piperacillin Sod/Tazobactam Sod (Zosyn/Ns 4.5gm/100ml) 4.5 gm in 100 mls @ 200 mls/hr IV Q8HR SAGAR; Protocol Last Admin: 06/22/20 05:49 Dose: 200 mls/hr Documented by: Ondansetron HCl (Zofran) 4 mg IV Q6H PRN PRN Reason: Nausea And Vomiting Review of Systems Constitutional: weakness, no fever, no chills, no sweats, no malaise Eyes: bilateral: other (NO BILATERAL EYE SYMPTOMS) Ears, nose, mouth and throat: no ear pain Breasts: deferred Cardiovascular: no chest pain, no orthopnea, no palpitations, no rapid/irregular heart beat, no syncope, no lightheadedness, no shortness of breath Respiratory: no cough, no shortness of breath Gastrointestinal: abdominal pain, nausea, vomiting, no diarrhea, no constipation, no hematemesis, no hematochezia Genitourinary Female: no pelvic pain Musculoskeletal: no neck stiffness, no neck pain Integumentary: no rash, no pruritis, no redness, no sores, no wounds Neurological: no weakness, no parathesias, no numbness, no tingling, no se izures, no syncope, no tremors, no vertigo, no headaches, no migraines, no convulsions, no change in speech, no change in mentation, no confusion Psychiatric: no anxiety, no depression Endocrine: no cold intolerance, no polydipsia, no polyuria, no nocturia, no excessive sweating Allergic/Immunologic: no urticaria Exam - Constitutional Vitals: Temp Pulse Resp BP Pulse Ox 98.1 F 66 20 120/73 96 06/22/20 04:13 06/22/20 04:13 06/22/20 04:13 06/22/20 04:13 06/22/20 04:13 - EENT Eyes: Present: PERRL, EOM intact ENT: hearing intact, clear oral mucosa - Neck Neck: Present: supple, normal ROM - Respiratory Respiratory effort: normal - Cardiovascular Rhythm: regular Heart Sounds: Present: S1 & S2, gallop. Absent: systolic murmur, diastolic murmur, click - Extremities Extremities: no ischemia, No edema Peripheral Pulses: within normal limits - Abdominal General gastrointestinal: Present: deferred, soft, tender, non-distended. Absent: non-tender, distended, rigid, hepatomegaly, splenomegaly, mass Female genitourinary: Present: deferred - Rectal Rectal Exam: deferred - Integumentary Integumentary: Present: clear, warm, dry - Musculoskeletal Musculoskeletal: generalized weakness - Psychiatric Psychiatric: appropriate mood/affect HEART Score - HEART Score Risk factors: No known risk factors Troponin: < normal limit - Critical Actions Critical Actions: 0-3 pts:0.9-1.7%risk of adverse cardiac event.Candidate for discharge Results - Labs CBC & Chem 7: 06/21/20 14:46 06/21/20 14:46 Labs: Laboratory Last Values WBC 7.0 K/mm3 (4.5-11.0) 06/21/20 14:46 RBC 3.56 M/mm3 (3.65-5.03) L 12/05/20 14:46 Hgb 9.0 gm/dl (10.1-14.3) L 06/21/20 14:46 Hct 28.5 % (30.3-42.9) L 06/21/20 14:46 MCV 80 fl (79-97) 06/21/20 14:46 MCH 25 pg (28-32) L 06/21/20 14:46 MCHC 32 % (30-34) 06/21/20 14:46 RDW 19.0 % (13.2-15.2) H 06/21/20 14:46 Plt Count 355 K/mm3 (140-440) 06/21/20 14:46 Lymph % (Auto) 9.2 % (13.4-35.0) L 06/21/20 14:46 [place] % (Auto) 3.7 % (0.0-7.3) 06/21/20 14:46 Eos % (Auto) 0.7 % (0.0-4.3) 06/21/20 14:46 Baso % (Auto) 0.3 % (0.0-1.8) 06/21/20 14:46 Lymph # (Auto) 0.6 K/mm3 (1.2-5.4) L 06/21/20 14:46 [place] # (Auto) 0.3 K/mm3 (0.0-0.8) 06/21/20 14:46 Eos # (Auto) 0.0 K/mm3 (0.0-0.4) 06/21/20 14:46 Baso # (Auto) 0.0 K/mm3 (0.0-0.1) 06/21/20 14:46 Seg Neutrophils % 86.1 % (40.0-70.0) H 06/21/20 14:46 Seg Neutrophils # 6.0 K/mm3 (1.8-7.7) 06/21/20 14:46 PT 12.7 Sec. (12.2-14.9) 06/21/20 14:46 INR 0.96 (0.87-1.13) 06/21/20 14:46 APTT 27.7 Sec. (24.2-36.6) 06/21/20 14:46 Sodium 136 mmol/L (137-145) L 06/21/20 14:46 Potassium 4.1 mmol/L (3.6-5.0) 06/21/20 14:46 Chloride 102.2 mmol/L (98-107) 06/21/20 14:46 Carbon Dioxide 27 mmol/L (22-30) 06/21/20 14:46 Anion Gap 11 mmol/L 06/21/20 14:46 BUN 15 mg/dL (7-17) 06/21/20 14:46 Creatinine 0.5 mg/dL (0.6-1.2) L 06/21/20 14:46 Estimated GFR > 60 ml/min 06/21/20 14:46 BUN/Creatinine Ratio 30 % 06/21/20 14:46 Glucose 107 mg/dL (65-100) H 06/21/20 14:46 Calcium 10.7 mg/dL (8.4-10.2) H 06/21/20 14:46 Total Bilirubin 0.30 mg/dL (0.1-1.2) 06/21/20 Unknown Direct Bilirubin < 0.2 mg/dL (0-0.2) 06/21/20 Unknown Indirect Bilirubin 0.1 mg/dL 06/21/20 Unknown AST 24 units/L (5-40) 06/21/20 Unknown ALT 32 units/L (7-56) 06/21/20 Unknown Alkaline Phosphatase 127 units/L (35-129) 06/21/20 Unknown Total Protein 7.5 g/dL (6.3-8.2) 06/21/20 Unknown Albumin 3.9 g/dL (3.9-5) 06/21/20 Unknown Albumin/Globulin Ratio 1.1 % 06/21/20 Unknown Lipase 19 units/L (13-60) 06/21/20 Unknown Urine Color Colorless (Yellow) 06/21/20 17:59 Urine Turbidity Clear (Clear) 06/21/20 17:59 Urine pH 8.0 (5.0-7.0) H 06/21/20 17:59 Ur Specific [place] 1.018 (1.003-1.030) 06/21/20 17:59 Urine Protein <15 mg/dl mg/dL (Negative) 06/21/20 17:59 Urine Glucose (UA) Neg mg/dL (Negative) 06/21/20 17:59 Urine Ketones Neg mg/dL (Negative) 06/21/20 17:59 Urine Blood Mod (Negative) 06/21/20 17:59 Urine Nitrite Neg (Negative) 06/21/20 17:59 Urine Bilirubin Neg (Negative) 06/21/20 17:59 Urine Urobilinogen < 2.0 mg/dL (<2.0) 06/21/20 17:59 Ur Leukocyte Esterase Sm (Negative) 06/21/20 17:59 Urine WBC (Auto) 6.0 /HPF (0.0-6.0) 06/21/20 17:59 Urine RBC (Auto) 3.0 /HPF (0.0-6.0) 06/21/20 17:59 U Epithel Cells (Auto) < 1.0 /HPF (0-13.0) 06/21/20 17:59 Urine Bacteria (Auto) 1+ /HPF (Negative) 06/21/20 17:59 Blood Type O POSITIVE 06/21/20 14:48 Antibody Screen Negative 06/21/20 14:48 Marino/IV: Voiding Method Toilet Assessment and Plan - Patient Problems (1) Cholecystitis Current Visit: Yes Status: Acute Plan to address problem: 1. I.V ZOSYN ANTIBIOTIC 2. I.V DILUDID FOR PAIN 3. 1.V ZOFRAN FOR NAUSEA AND VOMITING 4. I.V NORMAL SALINE FLUID 5. NPO 6. SURGICAL CONSULT (2) Hematoma of surgical wound following section Current Visit: Yes Status: Acute Plan to address problem: 1. SURGICAL CONSULT (3) Cholelithiasis Current Visit: Yes Status: Acute Qualifiers: Cholelithiasis location: gallbladder Cholecystitis presence: with cholecystitis Cholecystitis acuity: acute Biliary obstruction: without biliary obstruction Qualified Code(s): K80.00 - Calculus of gallbladder with acute cholecystitis without obstruction Plan to address problem: 1. SURGICAL CONSULT
--- NOTE | 2020-06-22 09:31 | Event Note ---
Date: 06/22/20 Patient 40-year-old female presented with right upper quadrant pain radiating to the back associated with nausea and vomiting. Patient also had some bleeding from previous surgical site CT scan showed 6 hematoma at surgery site as well as cholecystitis. Patient was admitted for cholecystitis. Given antibiotics treatment Zofran supportive care for nausea and vomiting pain control and further evaluation for surgical intervention. Currently hemodynamically stable pain controlled nausea vomiting controlled.
[2020-06-22] MEDS: HYDROmorphone 1 MG/1 ML INJ IV PRN ×2 (14:39→21:36)
[2020-06-22] MEDS: D5W/0.45% NACL 1,000 ML IV SCH (14:44)
--- NOTE | 2020-06-22 16:08 | Consultation ---
History of Present Illness Consult date: 06/22/20 Reason for consult: gallstones Chief complaint: Abdominal pain - History of present illness History of present illness: Patient is German-speaking and entire interview performed with [employer] senior account clerk #[id number] 40-year-old female with no past medical history, recently underwent last month. Patient has been having right upper quadrant abdominal pain, sharp since Tuesday of last week. She states the pain starts in her epigastrium and radiates around her right upper quadrant to her back. She has never had pain like this in the past. The pain is constant and only improved with pain medications given in the hospital. Denies fevers or chills. No chest pain or shortness of breath. Positive nausea but no vomiting. Work-up in the emergency room revealed gallstones and the possibility of acute cholecystitis. Surgery is consulted for evaluation. Past History Past Medical History: No medical history Past Surgical History: Social history: no significant social history Family history: no significant family history Medications and Allergies Allergies Allergy/AdvReac Type Severity Reaction Status Date / Time No Known Allergies Allergy Unverified 05/30/20 06:34 Home Medications Medication Instructions Recorded Confirmed Last Taken Type No Known Home Medications [No 05/30/20 05/30/20 Unknown History Reported Home Medications] Active Meds: Active Medications Acetaminophen (Tylenol) 650 mg PO Q4H PRN PRN Reason: Fever >101 Hydromorphone HCl (Dilaudid) 1 mg IV Q4H PRN PRN Reason: Pain , Severe (7-10) Last Admin: 06/22/20 14:39 Dose: 1 mg Documented by: Dextrose/Sodium Chloride (D5/0.45ns) 1,000 mls @ 125 mls/hr IV DIRECT SAGAR Last Admin: 06/22/20 14:44 Dose: 125 mls/hr Documented by: Piperacillin Sod/Tazobactam Sod (Zosyn/Ns 4.5gm/100ml) 4.5 gm in 100 mls @ 200 mls/hr IV Q8HR SAGAR; Protocol Last Admin: 06/22/20 14:39 Dose: 200 mls/hr Documented by: Ondansetron HCl (Zofran) 4 mg IV Q6H PRN PRN Reason: Nausea And Vomiting Review of Systems All systems: negative (10 point ROS performed and negative except for that listed in HPI) Exam Vital Signs Temp Pulse Resp BP Pulse Ox 98.1 F 70 18 132/83 98 06/21/20 14:40 06/21/20 14:40 06/21/20 14:40 06/21/20 14:40 06/21/20 14:40 Narrative exam: Gen.: Awake, alert, oriented 3. No apparent distress ENT: Trachea midline. No lymphadenopathy. No scleral icterus or conjunctival pallor CV: S1, S2 present Respiratory: No audible wheezes Abdomen: Soft, nondistended, right upper quadrant tenderness to palpation. Low er abdominal dressing clean, dry, intact. No rebound, rigidity, guarding Extremities: No clubbing, cyanosis, edema Results - Labs 06/21/20 14:46 06/21/20 14:46 Abnormal lab results 06/21/20 Range/Units 17:59 Urine pH 8.0 H (5.0-7.0) Diabetes panel 06/21/20 Range/Units Unknown AST 24 (5-40) units/L ALT 32 (7-56) units/L Alkaline Phosphatase 127 (35-129) units/L Total Protein 7.5 (6.3-8.2) g/dL Albumin 3.9 (3.9-5) g/dL Calcium panel 06/21/20 Range/Units Unknown Albumin 3.9 (3.9-5) g/dL Adrenal panel 06/21/20 Range/Units Unknown Total Bilirubin 0.30 (0.1-1.2) mg/dL AST 24 (5-40) units/L ALT 32 (7-56) units/L Alkaline Phosphatase 127 (35-129) units/L Total Protein 7.5 (6.3-8.2) g/dL Albumin 3.9 (3.9-5) g/dL - Imaging CT scan - abdomen: report reviewed, image reviewed CT scan - pelvis: report reviewed, image reviewed US - abdomen: report reviewed, image reviewed Assessment and Plan 40-year-old female with acute cholecystitis CT scan abdomen and pelvis -distended gallbladder with inflammation, acute cholecystitis Ultrasound abdomen: Multiple moderate sized gallstones. Gallbladder wall 0.27 cm, common bile duct 0.2 cm. No pericholecystic fluid. Patient stable. Afebrile. Pain and nausea controlled with medications. Plan: 1. Admitted to hospitalist service 2. Clear liquid diet, n.p.o. past midnight tonight 3. IV fluids 4. IV antibiotics - on zosyn 5. prn pain and nausea control 6. DVT ppx 7. Repeat CBC, BMP in a.m. 8. Recommend cholecystectomy. I discussed all risk, benefits, alternatives to surgery with the patient and questions were answered. Consent obtained for laparoscopic cholecystectomy, possible open, possible cholangiogram. The consent was obtained with a senior account clerk #[id number] Patient's was updated over the telephone. Thank you for this consultation. Please call with any questions or concerns. Evaluation and treatment of this patient was during the time of the national and state emergency arising from COVID19 coronavirus pandemic. Treatment and procedures performed meet the current and available best practice and guidelines for patient during the COVID pandemic.
[2020-06-22] MEDS ORDERED: ONDANSETRON 4 MG/2 ML INJ IV ONE (16:31)
[2020-06-22] MEDS: HEPARIN 5,000 UNIT/1 ML VIAL SUB-Q SCH (21:39)
[2020-06-23] MEDS: D5W/0.45% NACL 1,000 ML IV SCH (01:37)
[2020-06-23] MEDS: PIPERACIL/TAZOBACTA 4.5/NS 100 4.5 GM/100 ML VIAL IV SCH ×2 (05:07→12:49)
[2020-06-23] MEDS: HEPARIN 5,000 UNIT/1 ML VIAL SUB-Q SCH (05:08)
[2020-06-23 06:39] LABS: Hematocrit 28.7 % (30.3-42.9); Hemoglobin 8.9 gm/dl (10.1-14.3); Mean Corpuscular HGB Conc 31 % (30-34); Mean Corpuscular Volume 79 fl (79-97); Platelet Count 342 K/mm3 (140-440); Red Blood Count 3.62 M/mm3 (3.65-5.03); Red Cell Distribution Width 18.9 % (13.2-15.2)
[2020-06-23 06:56] LABS: Blood Urea Nitrogen 7 mg/dL (7-17); Calcium 10.1 mg/dL (8.4-10.2); Hemolysis Index 2
[2020-06-23 06:58] LABS: BUN/Creatinine Ratio 12
--- NOTE | 2020-06-23 10:32 | Anesthesia Day of Surgery ---
Anesthesia Day of Surgery - Day of Surgery Patient Examined: Yes Patient H&P Reviewed: Yes Patient is NPO: Yes
--- NOTE | 2020-06-23 10:32 | Anesthesia Consultation ---
Anesthesia Consult and Med Hx Date of service: 06/23/20 - Airway Anesthetic Teeth Evaluation: Good ROM Head & Neck: Adequate Mental/Hyoid Distance: Adequate Mallampati Class: Class II - Pulmonary Exam CTA: Yes - Cardiac Exam Cardiac Exam: RRR - Pre-Operative Health Status ASA Pre-Surgery Classification: ASA2 Proposed Anesthetic Plan: General - Pulmonary Hx Asthma: No COPD: No Hx Pneumonia: No - Cardiovascular System Hx Hypertension: No - Central Nervous System Hx Seizures: No Hx Psychiatric Problems: No - Endocrine Hx Renal Disease: No Hx End Stage Renal Disease: No Hx Hypothyroidism: No Hx Hyperthyroidism: No - Hematic Hx Anemia: Yes Hx Sickle Cell Disease: No - Other Systems Hx Alcohol Use: No Hx Cancer: No Hx Obesity: No
[2020-06-23] MEDS ORDERED: LACTATED RINGERS 1,000 ML ONE (13:02)
[2020-06-23] MEDS ORDERED: HYDROmorphone 1 MG/1 ML INJ IV PRN (13:29)
[2020-06-23] MEDS ORDERED: ONDANSETRON 4 MG/2 ML INJ IV PRN (13:29)
[2020-06-23] MEDS: LACTATED RINGERS 1,000 ML IV SCH (13:30)
[2020-06-23] MEDS ORDERED: LIDOCAINE (1%) 10 MG/1 ML VIAL 20 ML MDV ONE (13:41)
[2020-06-23] MEDS ORDERED: BUPIVACAINE/PF (0.5%) 5 MG/1 ML 30 ML VIAL INFILTRATI ONE ×2 (13:41→14:38)
[2020-06-23] MEDS ORDERED: MIDAZOLAM 2 MG/2 ML INJ IV NR (14:00)
[2020-06-23] MEDS ORDERED: SCOPOLAMINE TRANSDERMAL PATCH 72 HR TD NR (14:00)
[2020-06-23] MEDS ORDERED: propofoL 200 MG/20 ML VIAL IV ONE (14:05)
[2020-06-23] MEDS ORDERED: fentaNYL 100 MCG/2 ML INJ ONE (14:05)
[2020-06-23] MEDS ORDERED: LIDOCAINE MPF (2%) 20 MG/1 ML VIAL 5 ML ONE (14:14)
[2020-06-23] MEDS ORDERED: dexAMETHasone 20 MG/5 ML VIAL ONE (14:14)
[2020-06-23] MEDS ORDERED: GLYCOPYRROLATE 0.4 MG/2 ML INJ ONE (14:14)
[2020-06-23] MEDS ORDERED: HYDROmorphone 1 MG/1 ML INJ ONE (14:14)
[2020-06-23] MEDS ORDERED: SUCCINYLCHOLINE CHLORIDE 200 MG/10 ML INJ MDV ONE (14:14)
[2020-06-23] MEDS ORDERED: ONDANSETRON 4 MG/2 ML INJ ONE (14:14)
[2020-06-23] MEDS ORDERED: ROCURONIUM 50 MG/5 ML INJ IV ONE (14:14)
[2020-06-23] MEDS ORDERED: NEOSTIGMINE 10MG/10 ML INJ MDV ONE (14:14)
[2020-06-23] MEDS ORDERED: PHENYLEPHRINE/NS 1,000 MCG/10 ML SYRINGE (OR USE) IV ONE (14:14)
[2020-06-23] MEDS ORDERED: WATER FOR IRRIG STERILE 1,500 ML BOTTLE IR ONE (14:39)
[2020-06-23] MEDS ORDERED: LIDOCAINE (1%) 10 MG/1 ML VIAL 20 ML MDV INFILTRATI ONE (14:39)
--- NOTE | 2020-06-23 14:54 | Discharge Summary ---
<KELLEY FELIX - Last Filed: 06/24/20 10:53> Providers - Providers Date of Admission: 06/21/20 21:39 Date of discharge: 06/24/20 Attending physician: KELLEY FELIX 06/21/20 21:39 Consult to Physician [CONS] Routine Comment: Dr. Aranda spoke with Dr. Segura @ 0503 Consulting Provider: MARCELINO SEGURA Physician Instructions: Reason For Exam: abd pain./ letitia Primary care physician: MARITIME PILOT Hospitalization Condition: Critical Hospital course: 40-year-old female with no past medical history, recently underwent last month. Patient has been having right upper quadrant abdominal pain, sharp since Tuesday of last week. Work-up in the emergency room revealed gallstones and the possibility of acute cholecystitis. Surgery is consulted for evaluation and went through laparoscopic cholecystectomy. Patient tolerated the procedure well. She was recommended outpatient follow-up with general surgery in 1 to 2 weeks. Patient was then discharged home in stable condition with outpatient follow-up. CT scan abdomen and pelvis -distended gallbladder with inflammation, acute cholecystitis Ultrasound abdomen: Multiple moderate sized gallstones. Gallbladder wall 0.27 cm, common bile duct 0.2 cm. No pericholecystic fluid. Discharge diagnosis: Acute cholecystitis status post laparoscopic cholecystectomy Obesity, recommended weight reduction diet Hematoma of surgical wound following section Disposition: - TO HOME OR SELFCARE Time spent for discharge: 34 minutes Core Measure Documentation - Palliative Care Palliative Care/ Comfort Measures: Not Applicable - Core Measures Any of the following diagnoses?: none Exam - Constitutional Vitals: Temp Pulse Resp BP Pulse Ox 98.6 F 84 18 117/74 97 06/23/20 13:25 06/23/20 13:25 06/23/20 13:25 06/23/20 13:25 06/23/20 13:25 Plan Activity: advance as tolerated, fall precautions Weight Bearing Status: Non-Weight Bearing Diet: advance as tolerated Wound: per your surgeon's advice Follow up with: PRIMARY MD KELLY [Primary Care Provider] - 7 Days MARCELINO SEGURA DO [Staff Physician] - 7 Days Prescriptions: oxyCODONE /ACETAMINOPHEN [Percocet 5/325] 1 tab PO Q6HR #14 tab <MARCELINO SEGURA - Last Filed: 06/24/20 15:09> Providers - Providers Date of Admission: 06/21/20 21:39 Attending physician: KELLEY FELIX 06/21/20 21:39 Consult to Physician [CONS] Routine Comment: Dr. Aranda spoke with Dr. Segura @ [phone] Consulting Provider: MARCELINO SEGURA Physician Instructions: Reason For Exam: abd pain./ letitia Primary care physician: MARITIME PILOT Exam - Constitutional Vitals: Temp Pulse Resp BP Pulse Ox 98.1 F 68 18 102/62 99 06/24/20 11:37 06/24/20 11:37 06/24/20 11:37 06/24/20 11:37 06/24/20 11:37 Plan Wound: open to air Additional Instructions: Instrucciones de abhi del paciente. - Fleming sido sometido a fernie ciruga para extirpar la vescula biliar. Te sentirs dolorido adolfo los prximos rm. Los hematomas alrededor de la incisin podran ser normales. -Dieta: Dieta regular alimentos que son suaves y fciles de digerir. Trate de evitar los alimentos grasos o fritos de inmediato. Asegrese de beber vamshi agua y mantenerse hidratado. -Actividad: Se le anima a caminar y puede subir y bajar los escalones. No conduzca si est tomando analgsicos narcticos recetados. -Ducha: Puede ducharse en 1 da. Seque la incisin y no frote ni frote. No entre en fernie baera de hidromasaje, piscina o baera donde eliane incisiones estarn bajo el agua. -Instrucciones para el cuidado de heridas: Mantenga las incisiones limpias y secas. Hay pegamento para la piel en las incisiones que se caer por s solo. -Medicamentos para el dolor: Se recomienda usar medicamentos para el dolor de venta damon brayan Tylenol o ibuprofeno brayan se indica en el frasco para el control del dolor. Si el dolor no se controla con estos medicamentos, se le fleming dado fernie receta para analgsicos ms migdalia. Por favor, utilice brayan se indica y si no termina los analgsicos recetados, por favor regrese a villanueva farmacia.
[2020-06-23] MEDS ORDERED: HYDROcodone/ACETAMINOPHEN 5-325 MG TAB PO PRN (15:38)
--- NOTE | 2020-06-23 15:39 | Post Operative Note ---
Pre-op diagnosis: acute cholecystitis Post-op diagnosis: same Findings: Distended gallbladder with thickened wall and large stones, pericholecystic fluid Procedure: laparoscopic cholecystectomy Anesthesia: GETA, local Surgeon: MARCELINO SEGURA Estimated blood loss: 50-100ml Pathology: list (gallbladder) Specimen disposition: to lab Condition: stable Disposition: PACU
--- NOTE | 2020-06-23 17:15 | Operative Report ---
Operative Report Operative Report: Date: 06/23/20 15:38 Pre-op diagnosis: acute cholecystitis Post-op diagnosis: same Findings: Distended gallbladder with thickened wall and large stones, pericholecystic fluid Procedure: laparoscopic cholecystectomy Anesthesia: ALYX, local Surgeon: MARCELINO SEGURA Estimated blood loss: 50-100ml Pathology: list (gallbladder) Specimen disposition: to lab Condition: stable Disposition: PACU HPI an indication: 40-year-old female who presented to the emergency room with worsening right upper quadrant abdominal pain nausea and vomiting. Patient was found to have cholelithiasis with evidence of cholecystitis on CT scan of the abdomen pelvis. Right upper quadrant ultrasound also showed cholelithiasis without evidence of biliary ductal dilatation. Patient was admitted to the hospital and started on antibiotics for diagnosis of cholecystitis. It was recommended that she undergo cholecystectomy. All risk, benefits, alternatives to surgery were discussed with the patient and questions answered. Consent was obtained using the Appatureknapsack sprayer line. Procedure in detail: The patient was identified in the preoperative area and taken back to the operating room, placed on the operating room table in supine position. After anesthesia was induced, the abdomen was prepped and draped in usual sterile fashion and timeout was performed. Local anesthetic was infiltrated into all of the skin incision sites. Using a 11 blade a supraumbilical incision was made and through this a Veress needle was used to insufflate the abdomen. The positioning of the veress needle was confirmed with the saline drop test and the abdomen was then insufflated to 15 mmHg without incident. The veress needle was then removed and a 5 mm Optiview trocar was placed through the supraumbilical incision under direct visualization. The abdomen was then inspected and there was no underlying injury to any of the abdominal contents. An additional 12 mm subxyphoid port, and 2, 5mm RUQ ports were then placed under direct visualization. The patient was then placed into reverse Trendelberg and tilted to the left. The gallbladder was visualized and severely distended and appeared thickened. The gallbladder was decompressed with a laparoscopic needle and 60 cc of clear bile was aspirated from the gallbladder. The gallbladder was then grasped and retracted cephalad. Fat overlying the neck of the gallbladder was dissected using the [place] dissector. The cystic duct and artery were then carefully dissected and skeletonized. The critical view obtained, the cystic duct and artery were the only two structures seen entering the gallbladder. 2 clips were then placed on the proximal aspect of the cystic duct and one clip distally, and 2 clips on the cystic artery proximally and one distal. The cystic duct and cystic artery were then transected in between the clips. The gallbladder was dissected off the liver bed using hook electrocautery. The gallbladder wall was extremely thickened and the liver bed at the gallbladder fossa friable. The gallbladder was placed into a Endo Catch bag and removed from the abdomen via the 12mm port. The gallbladder fossa was then inspected. Hemostasis was carefully achieved using electrocautery. The gallbladder fossa and Morison's pouch were irrigated until the irrigant returned clear. And there was no identifiable bleeding or bile leakage. Hemostasis was ensured. The clips on the cystic duct and artery were visualized and intact. The patient was then placed into neutral position and Morison's pouch was once again irrigated and the irrigant returned clear. Eda powder was sprayed onto the liver bed in the gallbladder fossa. The 12 mm port fascia was closed with interrupted 0 Vicryl suture using the Librado Arana device. The remaining ports were removed under direct visualization. Skin incisions were closed with 4-0 Monocryl subcuticular stitches and skin glue. All skin incisions were once again infiltrated with local anesthetic. At the end case all sponge, instrument, sharp counts were correct 2. The patient was awoken from anesthesia, extubated, taken to PACU in stable condition.
--- NOTE | 2020-06-23 18:08 | Post Anesthesia Evaluation ---
- Post Anesthesia Evaluation Patient Participated: Yes Airway Patent: Yes Stable Respiratory Function: Yes Nausea/Vomiting: No Temp > 96.8F: Yes Pain Manageable: Yes Adequeate Hydration: Yes Anesthesia Complications: No
[2020-06-24] MEDS: HEPARIN 5,000 UNIT/1 ML VIAL SUB-Q SCH ×3 (00:19→06:22)
[2020-06-24] MEDS: PIPERACIL/TAZOBACTA 4.5/NS 100 4.5 GM/100 ML VIAL IV SCH ×2 (00:20→06:21)
[2020-06-24] MEDS: LACTATED RINGERS 1,000 ML IV SCH (00:27)
--- NOTE | 2020-06-24 09:26 | Progress Note ---
Assessment and Plan 40 yo F s/p laparoscopic cholecystectomy, POD 1 Plan: 1. adv diet as floridalma 2. dc IVF 3. prn pain control 4. OOB/ambulaye 5. IS/pulm toilet 6. DC abx 7. ok to dc home today from surgery standpoint. Pt instructed to call surgery clinic and make appointment for 2 week follow up. Thank you for this consultation. Please call with any questions or concerns. Evaluation and treatment of this patient was during the time of the national and state emergency arising from COVID19 coronavirus pandemic. Treatment and procedures performed meet the current and available best practice and guidelines for patient during the COVID pandemic. Subjective Date of service: 06/24/20 Narrative: Patient seen and examined. States she feels mildly dizzy from time to time when she is out of bed. No shortness of breath. She complains of sore throat. She is tolerating a diet. No fevers or chills. No nausea or vomiting Objective Vital Signs - 12hr 06/23/20 06/24/20 06/24/20 23:52 05:46 07:44 Temperature 97.9 F 98.0 F 98.4 F Pulse Rate 68 60 77 Respiratory 18 18 18 Rate Blood Pressure 117/68 114/69 110/76 O2 Sat by Pulse 98 98 96 Oximetry - General physical appearance Narrative Exam: Gen.: Awake, alert, oriented 3. No apparent distress ENT: Trachea midline. No lymphadenopathy. No scleral icterus or conjunctival pallor CV: S1, S2 present Respiratory: No audible wheezes Abdomen: Soft, nondistended, nontender. Incisions clean, dry, intact. No rebound, rigidity, guarding Extremities: No clubbing, cyanosis, edema - Labs 06/23/20 06:16 06/23/20 06:16
[2020-06-24] MEDS ORDERED: PHENOL 1.4% 177 ML BOTTLE MM PRN (10:00)
--- NOTE | 2020-06-24 10:56 | Progress Note ---
Assessment and Plan Acute cholecystitis - planned for laparoscopic cholecystectomy today Obesity, recommended weight reduction diet when clinically stable Hematoma of surgical wound following section - wound care and surgery following DVT Px, scd -Patient will be discharged once cleared by surgery following cholecystectomy Subjective Date of service: 06/23/20 Objective - Constitutional Vitals: Vital Signs - 12hr 06/23/20 06/24/20 06/24/20 23:52 05:46 07:44 Temperature 97.9 F 98.0 F 98.4 F Pulse Rate 68 60 77 Respiratory 18 18 18 Rate Blood Pressure 117/68 114/69 110/76 O2 Sat by Pulse 98 98 96 Oximetry - Labs CBC & Chem 7: 06/23/20 06:16 06/23/20 06:16 HEART Score - HEART Score Risk factors: No known risk factors Troponin: < normal limit - Critical Actions Critical Actions: 0-3 pts:0.9-1.7%risk of adverse cardiac event.Candidate for discharge
[2020-06-24 13:03] VITALS: BP 102/62
== END 2020-06-24 16:30 | disposition home or self-care (01) | DRG 769 ==
LOC: ED 14:34 → 3B-SURG 21:39
PROVIDERS: ADMIT Internal Medicine; ATTEND Internal Medicine
PROC: 0FT44ZZ Resection of Gallbladder, Percutaneous Endoscopic Approach (ICD-10-PCS; principal; 2020-06-23)
DX: O99.63 Diseases of the digestive system complicating the puerperium (principal); K80.12 Calculus of gallbladder with acute and chronic cholecystitis without obstruction; O90.2 Hematoma of obstetric wound; O90.81 Anemia of the puerperium; D64.9 Anemia, unspecified; O99.215 Obesity complicating the puerperium; E66.9 Obesity, unspecified
CPT/HCPCS: 36415; 74177; 76705; 80048; 80076; 81001; 83690; 85025; 85027; 85610; 85730; 86850; 86900; 86901; 88304; 96361; 96365; 96367; 96375; G0378; J0330; J0696; J1100; J1170; J1644; J1885; J2250; J2270; J2370; J2405; J2543; J2704; J2710; J3010; J7030; J7120; Q9967